=== PATIENT | female | born 1965 | race Two or more races ===

== ENCOUNTER 2024-04-03 23:42 | Inpatient (IN) | payer MEDICAID ==
[~2024-04-03] VITALS: Ht 157.5 cm; Wt 70.5 kg
[~2024-04-03 23:42] MED LIST: ACET-1304 PO; AMIO200T33 PO; APIX5TAB PO; ASPI-543 PO; ATOR40TA52 PO; CARV6.2551 PO; CEFD300C2 PO; CLOP75TA28 PO; DAPA1TAB4 PO; DOCU250C12 PO; DULA1INJ SC; GABA-339 PO; IBUP-1456 PO; LEVO50TA7 PO; MAGN400T40 PO; METF-929 PO; OMEG-54 PO; RANO500T3 PO; SENN1TAB14 PO
--- NOTE | 2024-04-03 23:59 | ED.PDOC ---
HPI Comments 58-year-old female who came to ER for chest pains. Patient has an extensive cardiac history, doing hypertension, diabetes, coronary artery disease, , CHF, AFib, status post cardiac stents. States for the past 3-4 days she has been having episodes of nausea and vomiting, unable to keep anything in. Earlier today, patient started experiencing substernal chest pains, midline, pressure, constant, nonradiating, associated with dizziness and shortness of breath. Upon arrival patient's blood pressure was 191/92 mm Hg Chief Complaint: Chest Pain Time Seen by MD: 23:59 Reviewed Notes: Nurses Notes Allergies: Coded Allergies: Codeine (Verified Allergy, 11/28/12) Home Meds Reported Medications Gabapentin (Gabapentin) 600 Mg Tab, 600 MG PO TID for 30 Days, MG 04/04/24 Acetaminophen (Acetaminophen) 325 Mg Tab, 500 MG PO for 30 Days, MG 0 Refills 04/04/24 Albuterol-Budesonide (Airsupra 90-80 Mcg/Act) 1 Aer Aer, 1 AER IN, AER 04/04/24 Aspirin (Aspir-Low) 81 Mg Tab, 81 MG PO DAILY for 30 Days, MG 04/04/24 Venlafaxine Hcl (Venlafaxine Hcl Er) 150 Mg Tab, 1 TAB PO, #30 TAB 1 Refill 04/04/24 Carvedilol (Carvedilol) 6.25 Mg Tab, 6.25 MG PO Q12HR for 30 Days, MG 04/04/24 Ranolazine (Ranolazine ER) 500 Mg Tab, 500 MG PO Q12HR, TAB 04/04/24 Cholecalciferol (VITAMIN D3) 2,000 Unit Chw, 2000 UNIT PO, TAB.CHEW 04/04/24 Multiple Vitamin (Multivitamin) 1 Tab Tab, 1 TAB PO, TAB 04/04/24 Metformin Hydrochloride (Metformin Hcl) 500 Mg Tab, 1000 MG PO BID for 30 Days, MG 04/04/24 Senna (Senna Laxative) 8.6 Mg Tab, 8.6 MG PO, TAB 04/04/24 Clopidogrel Bisulfate (CLOPIDOGREL) 75 Mg Tab, 75 MG PO DAILY for 30 Days, MG 04/04/24 Insulin Lispro (Admelog) 100 Unit/Ml Inj, 100 UNIT SC, INJ 04/04/24 Amiodarone Hcl (Amiodarone Hcl) 200 Mg Tab, 200 MG PO DAILY for 30 Days 04/04/24 Atorvastatin Calcium (ATORVASTATIN CALCIUM) 40 Mg Tab, 1 TAB PO DAILY, #30 TAB 5 Refills 04/04/24 Ondansetron HCl (Ondansetron) 4 Mg Tab, 4 MG PO, TAB 04/04/24 Dulaglutide (Trulicity) 1.5 Mg/0.5 Ml Inj, 1.5 MG SC QWEEKLY, INJ 04/04/24 Levothyroxine Sodium (Levothyroxine Sodium) 50 Mcg Tab, 50 MCG PO QAM for 30 Days, MCG 04/04/24 Dapagliflozin Propanediol (Farxiga) 10 Mg Tab, 5 MG PO DAILY, TAB 04/04/24 Psyllium (Metamucil) 0.36 Gm Cap, 3.4 GM PO, CAP 04/04/24 Polyethylene Glycol 3350 (Miralax) 17 Gm Pow, 17 GM PO, POW 04/04/24 Docusate Sodium (Colace) 100 Mg Cap, 1 CAP PO, #30 CAP 04/04/24 Meclizine Hcl (Meclizine Hcl) 12.5 Mg Tab, 12.5 MG PO TID for 30 Days, MG 04/04/24 Information Source: Patient Mode of Arrival: Ambulatory Severity: Moderate Timing: Days Duration: Intermittent Prehospital treatment: None Location: Substernal Radiation: No Radiation Quality: Pressure Onset: With Light Exertion Cardiac Risk Factors: HTN, Diabetes PE Risk Factors: None History of: Similar pain in past Modifying Factors: Nothing Associated Signs and Symptoms: SOB, N/V Past Medical History PAST MEDICAL HISTORY: AFIB, CAD, CHF, DM, HTN Surgical History: PTCA METAL FABRICATOR WELDER History: Denies all METAL FABRICATOR WELDER Hx Family History Family History: Reviewed,noncontributory to illness Social History Smoker: Non-Smoker Alcohol: Denies ETOH Use Drugs: Denies Drug Use Lives In: Home Constitutional: reports: weakness; denies: chills, diaphoresis, fatigue, fever, malaise, sweats, others EENTM: denies: blurred vision, double vision, ear bleeding, ear discharge, ear drainage, ear pain, ear ringing, eye pain, eye redness, hearing loss, mouth pain, mouth swelling, nasal discharge, nose bleeding, nose congestion, nose pain, photophobia, tearing, throat pain, throat swelling, voice changes, others Respiratory: reports: SOB at rest, shortness of breath; denies: cough, hemoptysis, orthopnea, SOB with excertion, stridor, wheezing, others Cardiovascular: reports: chest pain, dizzy spells, diaphoresis; denies: Dyspnea on exertion, edema, irregular heart beat, left arm pain, lightheadedness, palpitations, PND, syncope, others Gastrointestinal: reports: nausea, vomiting; denies: abdomen distended, abdominal pain, blood streaked bowels, constipated, diarrhea, dysphagia, difficulty swallowing, hematemesis, melena, poor appetite, poor fluid intake, rectal bleeding, rectal pain, others Genitourinary: denies: abnormal vagina bleeding, burning, dyspareunia, dysuria, flank pain, frequency, hematuria, incontinence, pain, , vagina discharge, urgency, others Neurological: denies: dizziness, fainting, headache, left sided numbness, left sided weakness, numbness, paresthesia, pre-existing deficit, right sided numbness, right sided weakness, seizure, speech problems, tingling, tremors, weakness, others Musculoskeletal: denies: back pain, gout, joint pain, joint swelling, muscle p ain, muscle stiffness, neck pain, others Integumetry: denies: bruises, change in color, change in hair/nails, dryness, laceration, lesions, lumps, rash, wounds, others Allergic/Immunocompromised: denies: Difficulty Healing, Frequent Infections, Hives, Itching, others Hematologic/Lymphatic: denies: anemia, blood clots, easy bleeding, easy bruising, swollen glands, others Endocrine: denies: excessive hunger, excessive sweating, excessive thirst, excessive urination, flushing, intolerance to cold, intolerance to heat, unexplained weight gain, unexplained weight loss, others Psychiatric: denies: anxiety, bipolar disorder, depression, hopeless, panic disorder, schizophrenia, sleepless, suicidal, others Physical Exam General Appearance: Moderate Distress, Normal HEENT: Normal ENT Inspection, Pharynx Normal, TMs Normal Neck: Full Range of Motion, Non-Tender, Normal, Normal Inspection Respiratory: Chest Non-Tender, Lungs Clear, No Accessory Muscle Use, No Respiratory Distress, Normal Breath Sounds Cardiovascular: Irregular, No Murmur Breast Exam: Deferred Gastrointestinal: No Organomegaly, Non Tender, No Pulsatile Mass, Normal Bowel Sounds, Soft Genitalia: Deferred Pelvic: Deferred Rectal: Deferred Extremities: No calf tenderness, Normal capillary refill, Normal inspection, Normal range of motion, Non-tender, No pedal edema Musculoskeletal : Apperance: Normal Neurologic: Alert, process coordinator II-XII nml as Tested, No Motor Deficits, Normal Affect, Normal Mood, No Sensory Deficits Cerebellar Function: Normal Reflexes: Normal Skin: Dry, Normal Color, Warm Lymphatic: No Adenopathy EKG EKG : Pulse Rate (adult): 80 Cardiac Rhythm: Afib Was a procedure done? Was a procedure done?: No CP Differential Dx Differential Diagnosis: A-fib, Angina, Anxiety / Panic Attack Differential Diagnosis: CHF Differential Diagnosis: Angina, Chest Wall Pain, Costochondritis, Esophageal reflux/spasm, Gastritis, Myocardial Infarction, Pneumonia X-Ray, Labs, Meds, VS Vital Signs Date Time Temp Pulse Resp B/P (MAP) Pulse Ox O2 Delivery O2 Flow Rate FiO2 04/04/24 02:00 80 16 148/90 (109) 95 04/04/24 01:30 78 19 175/88 (117) 96 04/04/24 01:15 75 13 164/84 (110) 94 04/04/24 00:28 74 04/04/24 00:13 98.5 84 14 177/76 (109) 97 98.5 04/04/24 00:05 84 14 97 Room Air* 0 21 04/03/24 23:51 97.9 80 18 191/92 (125) 98 04/03/24 23:48 80 Lab Test 04/04/24 00:40 04/03/24 23:50 Range/Units Troponin I High Sensitivity 160 *H 161 *H </=34 ng/L White Blood Count 7.7 4.4-10.8 10^3/uL Red Blood Count 4.93 4.0-5.20 10^6/uL Hemoglobin 15.4 12.2-16.2 g/dL Hematocrit 45.9 36.0-46.0 % Mean Corpuscular Volume 93.2 80.0-100.0 fL Mean Corpuscular Hemoglobin 31.2 28.0-32.0 pg Mean Corpuscular Hemoglobin Concent 33.5 32.0-36.0 g/dL Red Cell Distribution Width 15.3 H 11.8-14.3 % Platelet Count 300 140-450 10^3/uL Mean Platelet Volume 8.6 6.9-10.8 fL Neutrophils (%) (Auto) 68.1 37.0-80.0 % Lymphocytes (%) (Auto) 26.4 10.0-50.0 % Monocytes (%) (Auto) 4.0 0.0-12.0 % Eosinophils (%) (Auto) 0.9 0.0-7.0 % Basophils (%) (Auto) 0.6 0.0-2.0 % Neutrophils # (Auto) 5.3 1.6-8.6 10 ^3/uL Lymphocytes # (Auto) 2.0 0.4-5.4 10 ^3/uL Monocytes # (Auto) 0.3 0-1.3 10 ^3/uL Eosinophils # (Auto) 0.1 0-0.8 10 ^3/uL Basophils # (Auto) 0 0-0.2 10 ^3/uL Nucleated Red Blood Cells 0.0 % Prothrombin Time 10.9 9.3-11.8 sec Prothrombin Time INR 1.03 0.9-1.15 Activated Partial Thromboplast Time 25.1 24.5-34.5 SEC Sodium Level 145 136-145 mmol/L Potassium Level 4.3 3.5-5.1 mmol/L Chloride Level 105 98-107 mmol/L Carbon Dioxide Level 28 20-31 mmol/L Anion Gap 12 5-15 Blood Urea Nitrogen 10 9-23 mg/dL Creatinine 0.76 0.550-1.02 mg/dL Glomerular Filtration Rate Calc 91 >90 mL/min BUN/Creatinine Ratio 13.2 10.0-20.0 Serum Glucose 158 H 74-106 mg/dL Calcium Level 10.7 H 8.7-10.4 mg/dL Magnesium Level 2.1 1.6-2.6 mg/dL Total Bilirubin 0.3 0.2-1.0 mg/dL Aspartate Amino Transferase (AST) 24 13-40 U/L Alanine Aminotransferase (ALT) 27 7-40 U/L Alkaline Phosphatase 105 46-116 U/L Total Protein 8.4 H 5.7-8.2 g/dL Albumin 5.2 H 3.2-4.8 g/dL Lipase 77 H 12-53 U/L Current Medications Medications (Trade) Dose Ordered Sig/Renetta Route Start Time Stop Time Status Last Admin Aspirin (Ecotrin Enteric Coated Tablet) 81 mg ONCE ONCE PO 04/04/24 00:45 04/04/24 00:46 DC 04/04/24 00:46 Time of 1ST Reevaluation: 23:56 Reevaluation 1ST: Unchanged Time of 2ND Reevaluation: 00:33 Reevaluation 2ND: Unchanged Patient Education/Counseling: Diagnosis, Treatment Family Education/Counseling: No Family Present Departure 1 Departure Time of Disposition: 00:33 Impression: Primary Impression: Acute coronary syndrome Additional Impression: Atrial fibrillation Disposition: ADMITTED INPATIENT Admit to: Tele Condition: Guarded Critical Care Note Critical Care Time?: Yes (35 min-critical care time only) Critical care comment: Total critical care time: Approximately 36 minutes Due to a high probability of clinically significant, life threatening deterioration, the patient required my highest level of preparedness to intervene emergently and I personally spent this critical care time directly and personally managing the patient. This critical care time included obtaining a history; examining the patient; pulse oximetry; ordering and review of studies; arranging urgent treatment with development of a management plan; evaluation of patient's response to treatment; frequent reassessment; and, discussions with other providers. Stability Stability form required: No Heart Score Heart Score: Heart Score Response (Comments) Value History Moderate Suspicious 1 EKG Repolarization Disturb 1 Age 45-64 1 Risk Factors >3 or Hx ASHD 2 Troponin >3 x's Normal limit 2 Total 7 I personally scribed for BRENDAN CHUODHARY MD ([email or web address]) on 04/03/24 at 23:59. Electronically submitted by Riki Barreto ([email or web address]). I personally scribed for BRENDAN CHOUDHARY MD ([email or web address]) on 04/04/24 at 00:48. Electronically submitted by Riki Barreto ([email or web address]). BRENDAN CHOUDHARY MD Apr 03, 2024 23:59
[2024-04-04] VITALS (9 sets, daily range): BP systolic 115–186; BP diastolic 63–96; PULSE 74–87; RESP 14–19; TEMP 97.7–98.1; O2SAT 95–98
[2024-04-04 00:08] LABS: Basophils # (auto) 0 10 ^3/uL (0-0.2); Basophils % (auto) 0.6 % (0.0-2.0); Eosinophils # (auto) 0.1 10 ^3/uL (0-0.8); Eosinophils % (auto) 0.9 % (0.0-7.0); Hematocrit 45.9 % (36.0-46.0); Hemoglobin 15.4 g/dL (12.2-16.2); Lymphocytes % (auto) 26.4 % (10.0-50.0); Mean Corpuscular Hemoglobin 31.2 pg (28.0-32.0); Mean Corpuscular Hgb Conc. 33.5 g/dL (32.0-36.0); Mean Corpuscular Volume 93.2 fL (80.0-100.0); Monocytes # (auto) 0.3 10 ^3/uL (0-1.3); Neutrophils # (auto) 5.3 10 ^3/uL (1.6-8.6); Neutrophils % (auto) 68.1 % (37.0-80.0); Platelet Count (auto) 300 10^3/uL (140-450); Red Blood Cells 4.93 10^6/uL (4.0-5.20); Red Cell Distribution Width 15.3 % (11.8-14.3); White Blood Cell 7.7 10^3/uL (4.4-10.8)
[2024-04-04 00:22] LABS: Alanine Aminotransferase 27 U/L (7-40); Alkaline Phosphatase 105 U/L (46-116); Anion Gap 12 (5-15); Aspartate Aminotransferase 24 U/L (13-40); BUN/Creatinine Ratio 13.2 (10.0-20.0); Blood Urea Nitrogen 10 mg/dL (9-23); Carbon Dioxide 28 mmol/L (20-31); Chloride 105 mmol/L (98-107); Magnesium 2.1 mg/dL (1.6-2.6); Potassium 4.3 mmol/L (3.5-5.1); Sodium 145 mmol/L (136-145)
[2024-04-04 00:23] LABS: Albumin 5.2 g/dL (3.2-4.8); Bilirubin, Total 0.3 mg/dL (0.2-1.0); Calcium 10.7 mg/dL (8.7-10.4); Glucose 158 mg/dL (74-106); Total Protein 8.4 g/dL (5.7-8.2)
[2024-04-04 00:25] LABS: INR 1.03 (0.9-1.15); Partial Thromboplastin Time 25.1 SEC (24.5-34.5); Prothrombin Time 10.9 sec (9.3-11.8)
--- NOTE | 2024-04-04 00:26 | DVH ---
CHEST RADIOGRAPH Indication: chest pain Technique: Single frontal view of the chest was obtained Comparison: None FINDINGS: Lines and Tubes: None Lungs: Clear Pleura: No effusion. No pneumothorax. Cardiomediastinal contours: Unremarkable Bones: Unremarkable IMPRESSION: 1. Clear lungs.
[2024-04-04] MEDS: ASPirin-EC 81 mg tab PO ONE (00:46)
[2024-04-04] MEDS ORDERED: MORPHINE SULFATE INJ 2 MG/ml SYRG IV PRN (02:15)
[2024-04-04] MEDS ORDERED: DOCUSATE SOD 100 MG CAP PO PRN (02:15)
[2024-04-04] MEDS ORDERED: NITROGLYCERIN 0.4 MG SL TAB SL PRN (02:15)
[2024-04-04] MEDS ORDERED: DEXTROSE (50%) 50ML SYRG IV PRN (02:15)
--- NOTE | 2024-04-04 02:23 | DVHHP2 ---
History of Present Illness Reason for Visit: Acute coronary syndrome History of Present Illness The patient is a 58-year-old female with past medical history of AFib, Coronary artery disease, CHF, DM, and hypertension who presented to [facility] ED with complaint of chest pain. Patient reports symptoms progressively get worse with constant chest pain, nonradiating, dizzy spell, diaphoresis, weakness, shortness of breaths, SOB at rest, nausea, vomiting, getting worse today that prompted this visit. Patient was seen and evaluated in the ED, laboratory data shows WBC 7.7, platelets 300, sodium 145, potassium 4.3, BUN 10, creatinine 0.76, glucose 158, lipase 77, troponin 161, calcium 10.7, blood pressure 191/92 trending down to 148/90, heart rate 80, temperature 98.6 F, O2 saturation 95% on room air. Patient was given aspirin, please see medication orders section in the computer. On my assessment, patient denies chest pain at this moment, no headache, no dizziness, no diaphoresis, currently on oxygen, no nausea, no vomiting, no fever, no chills. Patient was admitted for further evaluation and medical management. Past Medical History AFIB, CAD, CHF, DM, HTN Past Surgical History PTCA Family History Reviewed, noncontributory to the management of this case. Past Social History The patient lives at home, denies smoking, alcohol or illicit drugs abuse. Review of Systems Constitutional: Yes: Weakness; No: Fever, Chills, Sweats, Malaise, Other Eyes: No: Pain, Vision change, Conjunctivae inflammation, Eyelid inflammation, Other, Redness ENT: No: Ear pain, Ear discharge, Nose pain, Nose discharge, Nose congestion, Mouth pain, Mouth swelling, Throat pain, Throat swelling, Other Respiratory: Shortness of breath, Other (SOB at rest); No: Cough, Dry, SOB with excertion, Wheezing, Hemoptysis, Pleuritic Pain, Sputum, Wheezing Cardiovascular: Chest Pain, Other (Dizzy spells, diaphoresis.); No: Palpitations, Orthopnea, Paroxysmal Noc. Dyspnea, Edema, Lt Headedness Gastrointestinal: Nausea, Vomiting; No: Abdominal Pain, Diarrhea, Constipation, Melena, Hematochezia, Other Genitourinary: No Dysuria, No Frequency, No Incontinence, No Hematuria, No Retention, No Other Musculoskeletal: No: other, neck pain, shoulder pain, arm pain, back pain, hand pain, leg pain, foot pain Skin: No: Rash, Lesions, Jaundice, Bruising, Other Neurological: No: Weakness, Numbness, Incoordination, Change in speech, Confusion, Seizures, Other Allergies: Coded Allergies: Codeine (Verified Allergy, 11/28/12) Exam Vital Signs Vital Signs Date Time Temp Pulse Resp B/P (MAP) Pulse Ox O2 Delivery O2 Flow Rate FiO2 04/04/24 02:00 80 16 148/90 (109) 95 04/04/24 00:13 98.5 98.5 General Appearance: Alert, Oriented X3, Cooperative, No acute distress HEENT: Atraumatic, PERRLA, EOMI, Mucous membr. moist/pink Respiratory: Clear to auscultation, Normal air movement Cardiovascular: Regular rate, Normal S1, Normal S2, No murmurs Abdominal: Normal bowel sounds, Soft, No tenderness, No hepatospenomegaly, No masses Extremities: No clubbing, No cyanosis, No edema, Normal pulses, No tenderness/swelling Skin: No rashes, No breakdown, No significant lesion Neuro: Normal gait, Normal speech, Strength at 5/5 X4 ext, Normal tone, Sensation intact, Cranial nerves 3-12 NL, Reflexes 2+ Psych/Mental Status: Mental status NL, Mood NL Labs/Xrays Labs Test 04/04/24 00:40 04/03/24 23:50 Range/Units Troponin I High Sensitivity 160 *H </=34 ng/L White Blood Count 7.7 4.4-10.8 10^3/uL Red Blood Count 4.93 4.0-5.20 10^6/uL Hemoglobin 15.4 12.2-16.2 g/dL Hematocrit 45.9 36.0-46.0 % Mean Corpuscular Volume 93.2 80.0-100.0 fL Mean Corpuscular Hemoglobin 31.2 28.0-32.0 pg Mean Corpuscular Hemoglobin Concent 33.5 32.0-36.0 g/dL Red Cell Distribution Width 15.3 H 11.8-14.3 % Platelet Count 300 140-450 10^3/uL Mean Platelet Volume 8.6 6.9-10.8 fL Neutrophils (%) (Auto) 68.1 37.0-80.0 % Lymphocytes (%) (Auto) 26.4 10.0-50.0 % Monocytes (%) (Auto) 4.0 0.0-12.0 % Eosinophils (%) (Auto) 0.9 0.0-7.0 % Basophils (%) (Auto) 0.6 0.0-2.0 % Neutrophils # (Auto) 5.3 1.6-8.6 10 ^3/uL Lymphocytes # (Auto) 2.0 0.4-5.4 10 ^3/uL Monocytes # (Auto) 0.3 0-1.3 10 ^3/uL Eosinophils # (Auto) 0.1 0-0.8 10 ^3/uL Basophils # (Auto) 0 0-0.2 10 ^3/uL Nucleated Red Blood Cells 0.0 % Prothrombin Time 10.9 9.3-11.8 sec Prothrombin Time INR 1.03 0.9-1.15 Activated Partial Thromboplast Time 25.1 24.5-34.5 SEC Sodium Level 145 136-145 mmol/L Potassium Level 4.3 3.5-5.1 mmol/L Chloride Level 105 98-107 mmol/L Carbon Dioxide Level 28 20-31 mmol/L Anion Gap 12 5-15 Blood Urea Nitrogen 10 9-23 mg/dL Creatinine 0.76 0.550-1.02 mg/dL Glomerular Filtration Rate Calc 91 >90 mL/min BUN/Creatinine Ratio 13.2 10.0-20.0 Serum Glucose 158 H 74-106 mg/dL Calcium Level 10.7 H 8.7-10.4 mg/dL Magnesium Level 2.1 1.6-2.6 mg/dL Total Bilirubin 0.3 0.2-1.0 mg/dL Aspartate Amino Transferase (AST) 24 13-40 U/L Alanine Aminotransferase (ALT) 27 7-40 U/L Alkaline Phosphatase 105 46-116 U/L Total Protein 8.4 H 5.7-8.2 g/dL Albumin 5.2 H 3.2-4.8 g/dL Lipase 77 H 12-53 U/L PATIENT: GRANT ALY ACCT: [id number] UNIT: [id number] : 1965 LOC: ER ROOM / BED: / AGE / SEX: 58 / F ADM STATUS: REG ER SERVICE [id number] ORDERING PHYSICIAN: BRENDAN CHOUDHARY MD PROCEDURE(s): CXRP - CHEST PORTABLE REASON: chest pain ORDER NUMBER(s): [id number], ACCESSION NUMBER(s): [id number] CHEST RADIOGRAPH Indication: chest pain Technique: Single frontal view of the chest was obtained Comparison: None FINDINGS: Lines and Tubes: None Lungs: Clear Pleura: No effusion. No pneumothorax. Cardiomediastinal contours: Unremarkable Bones: Unremarkable IMPRESSION: 1. Clear lungs. Assessment/Plan Assessment/Plan Acute coronary syndrome Atrial fibrillation Elevated lipase Hypertensive urgency Plan 1. Admit to telemetry unit 2. Breathing treatment 3. Pain control management 4. Management of fluids and electrolytes 5. Consultation for Cardiology 6. Diagnostic tests-chest x-ray 7. DVT prophylaxis-on aspirin 8. Repeat labs CBC, CMP in a.m. 9. Continue with current medical management 10. Treatment plan discussed with patient and RN. Patient verbalized understanding. Plan discussed with: Patient, Other (RN) My Orders Orders - ZAINA ESTEVEZ DNP Procedure Category Date Status Time Complete Blood Count LAB 04/04/24 Verified 04:00 Comprehensive LAB 04/04/24 Verified Metabolic Panel 04:00 Troponin-I Hs LAB 04/04/24 Verified 04:00 Aspirin Tablet PHA 04/04/24 Verified 10:00 Clopidogrel Bisulfate PHA 04/04/24 Verified (Plavix) 10:00 Consistent DIET 04/04/24 Verified Carb(Ccho)Diabetes Breakfast * Cardiology Consult CONS 04/04/24 Verified 02:13 Levothyroxine Tablet PHA 04/04/24 Verified (Synthroid Tablet) 06:00 Atorvastatin (Lipitor) PHA 04/04/24 Verified 22:00 Carvedilol Tablet PHA 04/04/24 Verified (Coreg Tablet) 10:00 Amlodipine Tablet PHA 04/04/24 Verified (Norvasc Tablet) 10:00 B-Type Natriuretic LAB 04/04/24 Verified Peptide 02:13 Glucose Blood PHA 04/04/24 Verified (Accu-Chek Comfort 07:00 Mild Sliding Scale PHA 04/04/24 Verified 07:00 Dextrose 50% Syringe PHA 04/04/24 Verified 02:15 Admit ADMIT 04/04/24 Verified 02:13 Allergies EVI 04/04/24 Verified 02:13 Code Status CODE 04/04/24 Verified 02:13 Sodium Chloride Lock [facility] 04/04/24 Verified (Saline Lock Ns) 06:00 Oxygen Per Hour RT 04/04/24 Verified 02:13 Ondansetron Hcl [facility] 04/04/24 Verified (Zofran) 02:15 Docusate Sodium [facility] 04/04/24 Verified Capsule (Colace 02:15 Complete Blood Count LAB 04/05/24 Verified 04:00 Comprehensive LAB 04/05/24 Verified Metabolic Panel 04:00 Condition: Serious [facility] 04/04/24 Verified 02:13 Acetaminophen Tablet [facility] 04/04/24 Verified (Tylenol Tablet) 02:15 Bedrest With Bathroom [facility] 04/04/24 Verified Privileg 02:13 Sequential [facility] 04/04/24 Verified Compression Device Nitroglycerin [facility] 04/04/24 Verified Sublingual (Ntrostat 02:15 Morphine Sulfate [facility] 04/04/24 Verified Injection 02:15 Notify Of Changes [facility] 04/04/24 Verified From Base 02:13 Soaker Meat For [facility] 04/04/24 Verified 24 Hours 02:13 Emergency Dysrhythmia [facility] 04/04/24 Verified Protocol 02:13 Rhythm Strips Once [facility] 04/04/24 Verified Every Shift 02:13 Problem List: (1) Acute coronary syndrome (2) Atrial fibrillation (3) Elevated lipase (4) Hypertensive urgency Date of Service: Apr 04, 2024 Billing Provider: ZAINA ESTEVEZ DNP Common Visit Codes: [id number] INP/OBS CARE (HIGH) ZAINA ESTEVEZ DNP Apr 04, 2024 02:23
[2024-04-04 04:08] LABS: Basophils # (auto) 0 10 ^3/uL (0-0.2); Basophils % (auto) 0.4 % (0.0-2.0); Eosinophils # (auto) 0 10 ^3/uL (0-0.8); Eosinophils % (auto) 0.4 % (0.0-7.0); Hematocrit 43.7 % (36.0-46.0); Hemoglobin 14.7 g/dL (12.2-16.2); Lymphocytes % (auto) 32.5 % (10.0-50.0); Mean Corpuscular Hemoglobin 31.5 pg (28.0-32.0); Mean Corpuscular Hgb Conc. 33.7 g/dL (32.0-36.0); Mean Corpuscular Volume 93.4 fL (80.0-100.0); Monocytes # (auto) 0.2 10 ^3/uL (0-1.3); Monocytes % (auto) 3.6 % (0.0-12.0); Neutrophils # (auto) 3.9 10 ^3/uL (1.6-8.6); Neutrophils % (auto) 63.1 % (37.0-80.0); Nucleated Red Blood Cells % 0.1 %; Platelet Count (auto) 281 10^3/uL (140-450); Red Blood Cells 4.68 10^6/uL (4.0-5.20); Red Cell Distribution Width 15.2 % (11.8-14.3); White Blood Cell 6.2 10^3/uL (4.4-10.8)
[2024-04-04 04:23] LABS: Alanine Aminotransferase 27 U/L (7-40); Albumin 4.7 g/dL (3.2-4.8); Alkaline Phosphatase 96 U/L (46-116); Anion Gap 11 (5-15); Aspartate Aminotransferase 20 U/L (13-40); BUN/Creatinine Ratio 14.1 (10.0-20.0); Blood Urea Nitrogen 10 mg/dL (9-23); Calcium 10.4 mg/dL (8.7-10.4); Carbon Dioxide 30 mmol/L (20-31); Chloride 104 mmol/L (98-107); Glucose 102 mg/dL (74-106); Potassium 3.5 mmol/L (3.5-5.1); Sodium 145 mmol/L (136-145)
[2024-04-04 04:24] LABS: Bilirubin, Total 0.4 mg/dL (0.2-1.0); Total Protein 7.8 g/dL (5.7-8.2)
[2024-04-04] MEDS ORDERED: RANO500T3 PO (04:58)
[2024-04-04] MEDS ORDERED: GABA-339 PO (04:58)
[2024-04-04] MEDS ORDERED: LEVO50TA7 PO (04:58)
[2024-04-04] MEDS ORDERED: DULA0.5I SC (04:58)
[2024-04-04] MEDS ORDERED: ATOR40TA52 PO (04:58)
[2024-04-04] MEDS ORDERED: ASPI-543 PO (04:58)
[2024-04-04] MEDS ORDERED: ACET-1881 PO (04:58)
[2024-04-04] MEDS ORDERED: DAPA1TAB4 PO (04:58)
[2024-04-04] MEDS ORDERED: ONDA-155 PO (04:58)
[2024-04-04] MEDS ORDERED: DOCU-94 PO (04:58)
[2024-04-04] MEDS ORDERED: POLY335015 PO (04:58)
[2024-04-04] MEDS ORDERED: METF-370 PO (04:58)
[2024-04-04] MEDS ORDERED: MECL12.586 PO (04:58)
[2024-04-04] MEDS ORDERED: SENN8.6T26 PO (04:58)
[2024-04-04] MEDS ORDERED: INSU100I26 SC (04:58)
[2024-04-04] MEDS ORDERED: VENL150T34 PO (04:58)
[2024-04-04] MEDS ORDERED: CLOP75TA70 PO (04:58)
[2024-04-04] MEDS ORDERED: CARV6.2551 PO (04:58)
[2024-04-04] MEDS ORDERED: CHOL200029 PO (04:58)
[2024-04-04] MEDS ORDERED: ALBU1AER6 IN (04:58)
[2024-04-04] MEDS ORDERED: MULT-1056 PO (04:58)
[2024-04-04] MEDS ORDERED: AMIO200T33 PO (04:58)
[2024-04-04] MEDS ORDERED: PSYL0.524 PO (04:58)
[2024-04-04] MEDS: hydrALAZINE HCL 20 MG/ML VL IV PRN (05:20)
[2024-04-04] MEDS: SODIUM CHLOR 0.9% PF (SALINE LOCK) 10ML VIAL/SYR IV SCH (05:21)
[2024-04-04] MEDS: ACETAMINOPHEN 325 MG TAB PO PRN (05:21)
[2024-04-04] MEDS: LEVOTHYROXINE SODIUM 50 MCG TAB PO SCH (06:00)
[2024-04-04] MEDS: ACCU-CHEK COMFORT CURVE STRIP VI SCH (06:45)
[2024-04-04] MEDS: InsuLIN REG 1unit/0.01ml Soln (100units/ml) SC SCH (06:45)
[2024-04-04] MEDS: CARVEDILOL 12.5 MG TAB PO SCH (08:36)
[2024-04-04] MEDS: ASPirin 81 mg TAB PO SCH (08:37)
[2024-04-04] MEDS: CLOPIDOGREL BISULFATE 75 MG TAB PO SCH (08:38)
[2024-04-04] MEDS: amLODIPine BESYLATE 5 MG TAB PO SCH (08:38)
[2024-04-04 09:46] LABS: Urine Bacteria None Seen /hpf (None Seen)
[2024-04-04 09:56] LABS: Urine Blood Negative /uL (Negative); Urine Clarity Clear (Clear); Urine Color Yellow (Yellow); Urine Protein, UAD 2+ (Negative); Urine Specific Gravity 1.039 (1.001-1.035); Urine Urobilinogen Normal (Negative); Urine WBC 2 /hpf (0 - 5); Urine pH 7.5 (5.0-9.0)
--- NOTE | 2024-04-04 11:10 | DVHINCON2 ---
KAYLEE PARIS [facility] 04/04/24 1110: Date Seen: Apr 04, 2024 Referring Physician KAITY Banks Reason for Consultation Chest pain with elevated troponin History of Present Illness This is a 58-year-old female patient who presents to the emergency room with chief complaint of chest pain that began at 8:00 a.m. yesterday morning. The patient reports that she was folding clothes and putting clothes away at home w hen suddenly she began experiencing the chest pain. She describes the pain as unprovoked, pressure-like in nature, and generalized over her entire right, center and left side of chest without radiation to arms/back/face. She comes to the emergency room for further evaluation. Initial twelve lead electrocardiogram reveals normal sinus rhythm without any significant ST segment changes. Initial troponin level of 161ng/L with flat trend thereafter. Significant past medical history includes coronary artery disease status post multiple PCIs with stents (on Plavix and ASA), congestive heart failure, atrial fibrillation (not on NOAC), myocardial infarction, hypertension, hyperlipidemia, type 2 diabetes mellitus, hypothyroidism, and obesity. Of note, the patient came in with blood pressure reaching as high as 191/92. The patient reports that she has been checking her blood pressure at home and has been having systolic readings in the 180s for approximately one week at home. She does report some stress at home as she is unhappy with her caregiving situation. The patient was also recently seen at this facility where she underwent a coronary angiogram with left heart catheterization on 02/10/2024 (under different ) which revealed widely patent stents to the RCA, LAD, and left circumflex. The patient also reports going to [facility] on 03/18/2024 and undergoing another angiogram at that time for which she states she can not remember if there were any stent placement. Patient's primary meter inspector is . Past Medical History Past medical history reviewed. No other significant than mentioned above. Past Surgical History Hysterectomy Cataract removal Family History: Cerebrovascular accident (CVA) G8 FATHER Cervical cancer G8 MOTHER Family History Family history reviewed. Social History Patient has a eight pack-year history, quit smoking approximately five years ago Patient denies any alcohol use Patient denies any drug use Allergies: Coded Allergies: Codeine (Verified Allergy, 11/28/12) Home Meds Reported Medications Venlafaxine Hcl (Venlafaxine Hcl Er) 150 Mg Cap, 1 CAP PO DAILY 04/04/24 Gabapentin (Gabapentin) 600 Mg Tab, 600 MG PO TID for 30 Days, MG 04/04/24 Acetaminophen (Acetaminophen) 325 Mg Tab, 500 MG PO for 30 Days, MG 0 Refills 04/04/24 Albuterol-Budesonide (Airsupra 90-80 Mcg/Act) 1 Aer Aer, 1 AER IN, AER 04/04/24 Aspirin (Aspir-Low) 81 Mg Tab, 81 MG PO DAILY for 30 Days, MG 04/04/24 Venlafaxine Hcl (Venlafaxine Hcl Er) 150 Mg Tab, 1 TAB PO, #30 TAB 1 Refill 04/04/24 Carvedilol (Carvedilol) 6.25 Mg Tab, 6.25 MG PO Q12HR for 30 Days, MG 04/04/24 Ranolazine (Ranolazine ER) 500 Mg Tab, 500 MG PO Q12HR, TAB 04/04/24 Cholecalciferol (VITAMIN D3) 2,000 Unit Chw, 2000 UNIT PO, TAB.CHEW 04/04/24 Multiple Vitamin (Multivitamin) 1 Tab Tab, 1 TAB PO, TAB 04/04/24 Metformin Hydrochloride (Metformin Hcl) 500 Mg Tab, 1000 MG PO BID for 30 Days, MG 04/04/24 Senna (Senna Laxative) 8.6 Mg Tab, 8.6 MG PO, TAB 04/04/24 Clopidogrel Bisulfate (CLOPIDOGREL) 75 Mg Tab, 75 MG PO DAILY for 30 Days, MG 04/04/24 Insulin Lispro (Admelog) 100 Unit/Ml Inj, 100 UNIT SC, INJ 04/04/24 Amiodarone Hcl (Amiodarone Hcl) 200 Mg Tab, 200 MG PO DAILY for 30 Days 04/04/24 Atorvastatin Calcium (ATORVASTATIN CALCIUM) 40 Mg Tab, 1 TAB PO DAILY, #30 TAB 5 Refills 04/04/24 Ondansetron HCl (Ondansetron) 4 Mg Tab, 4 MG PO, TAB 04/04/24 Dulaglutide (Trulicity) 1.5 Mg/0.5 Ml Inj, 1.5 MG SC QWEEKLY, INJ 04/04/24 Levothyroxine Sodium (Levothyroxine Sodium) 50 Mcg Tab, 50 MCG PO QAM for 30 Days, MCG 04/04/24 Dapagliflozin Propanediol (Farxiga) 10 Mg Tab, 5 MG PO DAILY, TAB 04/04/24 Psyllium (Metamucil) 0.36 Gm Cap, 3.4 GM PO, CAP 04/04/24 Polyethylene Glycol 3350 (Miralax) 17 Gm Pow, 17 GM PO, POW 04/04/24 Docusate Sodium (Colace) 100 Mg Cap, 1 CAP PO, #30 CAP 04/04/24 Meclizine Hcl (Meclizine Hcl) 12.5 Mg Tab, 12.5 MG PO TID for 30 Days, MG 04/04/24 Home Meds Home medications reviewed. Current Medications Current Medications Medications (Trade) Dose Ordered Sig/Renetta Route PRN Reason Start Time Stop Time Status Last Admin Aspirin 81 mg DAILY PO 04/04/24 10:00 04/04/24 08:37 Clopidogrel Bisulfate (Plavix) 75 mg DAILY PO 04/04/24 10:00 04/04/24 08:38 Levothyroxine Sodium (Synthroid Tablet) 50 mcg QAM@0600 PO 04/04/24 06:00 04/04/24 06:00 Atorvastatin Calcium (Lipitor) 20 mg HS PO 04/04/24 22:00 Carvedilol (Coreg Tablet) 12.5 mg Q12HR PO 04/04/24 10:00 04/04/24 08:36 Amlodipine Besylate (Norvasc Tablet) 5 mg DAILY PO 04/04/24 10:00 04/04/24 08:38 Diagnostic Test (Pha) (Accu-Chek Comfort Curve T) 1 strip ACHS 04/04/24 07:00 Insulin Human Regular (InsuLIN R) ACHS SC 04/04/24 07:00 Dextrose 50 ml UD PRN IV Blood Sugar LESS THAN 60 04/04/24 02:15 Sodium Chloride (Saline Lock Ns) 10 ml Q8HR IV 04/04/24 06:00 04/04/24 05:21 Ondansetron HCl (Zofran) 4 mg Q4HP PRN IV NAUSEA / VOMITING 04/04/24 02:15 Docusate Sodium (Colace Capsule) 100 mg BIDPRN PRN PO FOR CONSTIPATION 04/04/24 02:15 Acetaminophen (Tylenol Tablet) 650 mg Q6HP PRN PO PAIN SCALE 1-3 OR TEMP>100.4 04/04/24 02:15 04/04/24 05:21 Nitroglycerin (Ntrostat Sublingual) 0.4 mg Q5MINP PRN SL FOR CHEST PAIN 04/04/24 02:15 Morphine Sulfate 2 mg Q30M PRN IV FOR CHEST PAIN 04/04/24 02:15 Hydromorphone HCl (Dilaudid Injection) 0.5 mg Q4HPRN PRN IV SEVERE PAIN (7-10 PAIN SCALE) 04/04/24 02:15 Hydralazine HCl (Apresoline Injection) 10 mg Q6HP PRN IV SBP>150 04/04/24 05:15 04/04/24 05:20 Review of Systems Constitutional: No symptom reported Ears, Nose, & Throat: No symptom reported Eyes: No symptom reported Neurological: No symptoms reported Pulmonary/Respiratory: No symptoms reported Cardiovascular: Chest pain Gastrointestinal: No symptom reported Genitourinary: No symptom reported Musculoskeletal: No symptom reported Skin: No symptom reported Psychiatric: No symptom reported Endocrine: No symptom reported Hematologic/Lymphatic: No symptom reported Vital Signs Vital Signs Date Time Temp Pulse Resp B/P (MAP) Pulse Ox O2 Delivery O2 Flow Rate FiO2 04/04/24 09:00 98.1 87 18 118/70 (86) 96 98.1 04/04/24 08:00 Room Air* 0 21 Physical Exam General Appearance: Cooperative. Well-developed. Well-nourished. No acute distress. Pulmonary/Respiratory: Clear, bilateral breaths sounds. Cardiovascular/Chest: Regular rate and rhythm. Peripheral Pulses: 2+ Radial (R). 2+ Radial (L). 2+ Pedal (R). 2+ Pedal (L) Abdominal Exam: Normal bowel sounds. Ankle Exam: Negative ankle edema Lower extremities: Negative lower extremity edema Neuro/Mental Status: A/OX4, coherent. Thoughts/Psych: Normal thought pattern. Appropriate mood and affect. Good judgme nt and insight. Appearance: No acute distress. Skin Exam: Normal inspection. Normal color. Warm and dry. Labs/Diagnostic Data Labs Test 04/04/24 08:00 04/04/24 03:37 04/03/24 23:50 Range/Units Urine Color Yellow Yellow Urine Clarity Clear Clear Urine pH 7.5 5.0-9.0 Urine Specific [place] 1.039 H 1.001-1.035 Urine Protein 2+ H Negative Urine Ketones 2+ H Negative Urine Blood Negative Negative /uL Urine Nitrite Negative Negative Urine Bilirubin Negative Negative Urine Urobilinogen Normal Negative mg/dL Urine Leukocyte Esterase Negative Negative /uL Urine RBC 2 0 - 4 /hpf Urine WBC 2 0 - 5 /hpf Urine Squamous Epithelial Cells Few <5 /hpf Urine Bacteria None seen None Seen /hpf Urine Glucose 4+ H Normal mg/dL White Blood Count 6.2 4.4-10.8 10^3/uL Red Blood Count 4.68 4.0-5.20 10^6/uL Hemoglobin 14.7 12.2-16.2 g/dL Hematocrit 43.7 36.0-46.0 % Mean Corpuscular Volume 93.4 80.0-100.0 fL Mean Corpuscular Hemoglobin 31.5 28.0-32.0 pg Mean Corpuscular Hemoglobin Concent 33.7 32.0-36.0 g/dL Red Cell Distribution Width 15.2 H 11.8-14.3 % Platelet Count 281 140-450 10^3/uL Mean Platelet Volume 8.7 6.9-10.8 fL Neutrophils (%) (Auto) 63.1 37.0-80.0 % Lymphocytes (%) (Auto) 32.5 10.0-50.0 % Monocytes (%) (Auto) 3.6 0.0-12.0 % Eosinophils (%) (Auto) 0.4 0.0-7.0 % Basophils (%) (Auto) 0.4 0.0-2.0 % Neutrophils # (Auto) 3.9 1.6-8.6 10 ^3/uL Lymphocytes # (Auto) 2.0 0.4-5.4 10 ^3/uL Monocytes # (Auto) 0.2 0-1.3 10 ^3/uL Eosinophils # (Auto) 0 0-0.8 10 ^3/uL Basophils # (Auto) 0 0-0.2 10 ^3/uL Nucleated Red Blood Cells 0.1 % Sodium Level 145 136-145 mmol/L Potassium Level 3.5 3.5-5.1 mmol/L Chloride Level 104 98-107 mmol/L Carbon Dioxide Level 30 20-31 mmol/L Anion Gap 11 5-15 Blood Urea Nitrogen 10 9-23 mg/dL Creatinine 0.71 0.550-1.02 mg/dL Glomerular Filtration Rate Calc 98 >90 mL/min BUN/Creatinine Ratio 14.1 10.0-20.0 Serum Glucose 102 74-106 mg/dL Calcium Level 10.4 8.7-10.4 mg/dL Total Bilirubin 0.4 0.2-1.0 mg/dL Aspartate Amino Transferase (AST) 20 13-40 U/L Alanine Aminotransferase (ALT) 27 7-40 U/L Alkaline Phosphatase 96 46-116 U/L Troponin I High Sensitivity 151 *H </=34 ng/L B-Type Natriuretic Peptide 13.81 0-100 pg/mL Total Protein 7.8 5.7-8.2 g/dL Albumin 4.7 3.2-4.8 g/dL Prothrombin Time 10.9 9.3-11.8 sec Prothrombin Time INR 1.03 0.9-1.15 Activated Partial Thromboplast Time 25.1 24.5-34.5 SEC Magnesium Level 2.1 1.6-2.6 mg/dL Lipase 77 H 12-53 U/L Assessment NSTEMI type II in the setting of hypertensive urgency Coronary artery disease s/p multiple PCIs and stents (on Plavix and ASA) Acute on chronic HFrEF, NYHA class III Paroxysmal atrial fibrillation (off NOAC) Hyperlipidemia Type 2 diabetes mellitus Thyroid disease Obesity Plan/Recommendation We will continue with following plan/recommendations (): * Echocardiogram from 02/10/24 reveals EF 35-40% (found under different ) * Initiate GDMT for CHF as tolerated * Strict intake and output, daily weights, maintain fluid restriction * Aggressive BP control * Lipid-lowering agent * Continue dual antiplatelet therapy * Restart Ranexa Case discussed with Dr. Vidales. We will recommend aggressive blood pressure control and medical management at this time. Thank you for allowing us to care for this patient. Please call with any questions or concerns. Critical care time spent: 41 minutes This medical document was created using an electronic medical record system with voice recognition software and computerized dictation system. Although this document has been carefully reviewed, there might still be some phonetic and typographical errors. Occasional wrong-word or ``sound-alike substitutions may have occurred due to the inherent limitations of voice recognition software. These areas are purely typographical due to imperfections of the software programs and do not reflect any compromise in the patient's medical care. Please read the chart carefully and recognize, using context, where these substitutions have occurred. Plan discussed with: Patient NYHA Physical activity limitations: Class3(Marked) ordinary (activity causes symtoms) Date of Service: Apr 04, 2024 Billing Provider: KAYLEE PARIS Cardiology Common Codes: [id number] INP/OBS CARE (High) Cardiology Consultation Codes: [id number] CONSULT <45MIN NARENDRA VIDALES MD 04/05/24 1018: Family History: Cerebrovascular accident (CVA) G8 FATHER Cervical cancer G8 MOTHER Allergies: Coded Allergies: Codeine (Verified Allergy, 11/28/12) Home Meds Reported Medications Venlafaxine Hcl (Venlafaxine Hcl Er) 150 Mg Cap, 1 CAP PO DAILY 04/04/24 Gabapentin (Gabapentin) 600 Mg Tab, 600 MG PO TID for 30 Days, MG 04/04/24 Acetaminophen (Acetaminophen) 325 Mg Tab, 500 MG PO for 30 Days, MG 0 Refills 04/04/24 Albuterol-Budesonide (Airsupra 90-80 Mcg/Act) 1 Aer Aer, 1 AER IN, AER 04/04/24 Aspirin (Aspir-Low) 81 Mg Tab, 81 MG PO DAILY for 30 Days, MG 04/04/24 Venlafaxine Hcl (Venlafaxine Hcl Er) 150 Mg Tab, 1 TAB PO, #30 TAB 1 Refill 04/04/24 Carvedilol (Carvedilol) 6.25 Mg Tab, 6.25 MG PO Q12HR for 30 Days, MG 04/04/24 Ranolazine (Ranolazine ER) 500 Mg Tab, 500 MG PO Q12HR, TAB 04/04/24 Cholecalciferol (VITAMIN D3) 2,000 Unit Chw, 2000 UNIT PO, TAB.CHEW 04/04/24 Multiple Vitamin (Multivitamin) 1 Tab Tab, 1 TAB PO, TAB 04/04/24 Metformin Hydrochloride (Metformin Hcl) 500 Mg Tab, 1000 MG PO BID for 30 Days, MG 04/04/24 Senna (Senna Laxative) 8.6 Mg Tab, 8.6 MG PO, TAB 04/04/24 Clopidogrel Bisulfate (CLOPIDOGREL) 75 Mg Tab, 75 MG PO DAILY for 30 Days, MG 04/04/24 Insulin Lispro (Admelog) 100 Unit/Ml Inj, 100 UNIT SC, INJ 04/04/24 Amiodarone Hcl (Amiodarone Hcl) 200 Mg Tab, 200 MG PO DAILY for 30 Days 04/04/24 Atorvastatin Calcium (ATORVASTATIN CALCIUM) 40 Mg Tab, 1 TAB PO DAILY, #30 TAB 5 Refills 04/04/24 Ondansetron HCl (Ondansetron) 4 Mg Tab, 4 MG PO, TAB 04/04/24 Dulaglutide (Trulicity) 1.5 Mg/0.5 Ml Inj, 1.5 MG SC QWEEKLY, INJ 04/04/24 Levothyroxine Sodium (Levothyroxine Sodium) 50 Mcg Tab, 50 MCG PO QAM for 30 Days, MCG 04/04/24 Dapagliflozin Propanediol (Farxiga) 10 Mg Tab, 5 MG PO DAILY, TAB 04/04/24 Psyllium (Metamucil) 0.36 Gm Cap, 3.4 GM PO, CAP 04/04/24 Polyethylene Glycol 3350 (Miralax) 17 Gm Pow, 17 GM PO, POW 04/04/24 Docusate Sodium (Colace) 100 Mg Cap, 1 CAP PO, #30 CAP 04/04/24 Meclizine Hcl (Meclizine Hcl) 12.5 Mg Tab, 12.5 MG PO TID for 30 Days, MG 04/04/24 Plan/Recommendation dw [employer] [facility] images indepenedently reviewed by myself we looked up the [facility] records as well to review cath report and lab results medical management is indicated bp control Plan discussed with: Patient KAYLEE PARIS [employer] Apr 04, 2024 11:10 NARENDRA VIDALES MD Apr 05, 2024 10:18
[2024-04-04] MEDS ORDERED: VENL150C58 PO (12:42)
--- NOTE | 2024-04-04 12:47 | DVHPN2 ---
Subjective Patient states that she was currently chest pain free, but states that she had cramping type of chest pain this morning. Reviewed: Care Plan, H&P, Labs Changes from previous H/P or p: No Changes General: Per HPI Eyes: No Pain, No Vision change, No Conjunctivae inflammation, No Eyelid inflammation, No Other, No Redness ENT: No Ear pain, No Ear discharge, No Nose pain, No Nose discharge, No Nose congestion, No Mouth pain, No Mouth swelling, No Throat pain, No Throat swelling, No Other Cardiovascular: Chest Pain; No Palpitations, No Orthopnea, No Paroxysmal Noc. Dyspnea, No Edema, No Lt Headedness; Other (Dizzy spells, diaphoresis.) Respiratory: No Cough, No Dry; Shortness of breath; No SOB with excertion, No Wheezing, No Hemoptysis, No Pleuritic Pain, No Sputum; Other (SOB at rest) Gastrointestinal: Nausea, Vomiting; No Abdominal Pain, No Diarrhea, No Constipation, No Melena, No Hematochezia, No Other Genitourinary: No Dysuria, No Frequency, No Incontinence, No Hematuria, No Retention, No Other Musculoskeletal: No other, No neck pain, No shoulder pain, No arm pain, No back pain, No hand pain, No leg pain, No foot pain Skin: No Rash, No Lesions, No Jaundice, No Bruising, No Other Objective Vitals Vital Signs Date Time Temp Pulse Resp B/P (MAP) Pulse Ox O2 Delivery O2 Flow Rate FiO2 04/04/24 09:00 98.1 87 18 118/70 (86) 96 98.1 04/04/24 08:00 Room Air* 0 21 Intake/Output Intake and Output 04/04/24 07:00 Intake Total 0 ml Balance 0 ml Intake Oral 0 ml General Appearance: Alert, Oriented X3, Cooperative, No acute distress, mild distress HEENT: Atraumatic, PERRLA Cardiovascular: Normal S1, Normal S2 Musculoskeletal: Normal sensory function, Normal motor function Lymph: Lymphadenopathy, Lymphedema Psych/Mental Status: Mental status NL, Mood NL Medications Current Medications Medications Dose Ordered Sig/Renetta Route Start Time Stop Time Status Last Admin Dose Admin Aspirin 81 mg DAILY PO 04/04/24 10:00 04/04/24 08:37 81 MG Clopidogrel Bisulfate 75 mg DAILY PO 04/04/24 10:00 04/04/24 08:38 75 MG Levothyroxine Sodium 50 mcg QAM@0600 PO 04/04/24 06:00 04/04/24 06:00 50 MCG Carvedilol 12.5 mg Q12HR PO 04/04/24 10:00 04/04/24 08:36 12.5 MG Diagnostic Test (Pha) 1 strip ACHS 04/04/24 07:00 04/04/24 11:32 1 STRIP Insulin Human Regular ACHS SC 04/04/24 07:00 Dextrose 50 ml UD PRN IV 04/04/24 02:15 Sodium Chloride 10 ml Q8HR IV 04/04/24 06:00 04/04/24 11:32 10 ML Ondansetron HCl 4 mg Q4HP PRN IV 04/04/24 02:15 Docusate Sodium 100 mg BIDPRN PRN PO 04/04/24 02:15 Acetaminophen 650 mg Q6HP PRN PO 04/04/24 02:15 04/04/24 05:21 650 MG Nitroglycerin 0.4 mg Q5MINP PRN SL 04/04/24 02:15 Morphine Sulfate 2 mg Q30M PRN IV 04/04/24 02:15 Hydromorphone HCl 0.5 mg Q4HPRN PRN IV 04/04/24 02:15 Hydralazine HCl 10 mg Q6HP PRN IV 04/04/24 05:15 04/04/24 05:20 10 MG Empaglifozin 10 mg DAILY PO 04/05/24 10:00 Sacubitril/ Valsartan 1 tab BID PO 04/04/24 22:00 Spironolactone 25 mg DAILY PO 04/05/24 10:00 Atorvastatin Calcium 40 mg HS PO 04/04/24 22:00 Laboratory Results Laboratory Tests 04/04/24 03:37 Chemistry Test 04/03/24 23:50 04/04/24 03:37 Albumin 5.2 g/dL (3.2-4.8) H 4.7 g/dL (3.2-4.8) Calcium Level 10.7 mg/dL (8.7-10.4) H 10.4 mg/dL (8.7-10.4) Magnesium Level 2.1 mg/dL (1.6-2.6) Total Protein 8.4 g/dL (5.7-8.2) H 7.8 g/dL (5.7-8.2) Coagulation Test 04/03/24 23:50 Prothrombin Time 10.9 sec (9.3-11.8) Prothrombin Time INR 1.03 (0.9-1.15) Activated Partial Thromboplast Time 25.1 SEC (24.5-34.5) Lipid panel Test 04/03/24 23:50 Lipase 77 U/L (12-53) H Cardiac Markers Test 04/04/24 03:37 B-Type Natriuretic Peptide 13.81 pg/mL (0-100) LFT Test 04/03/24 23:50 04/04/24 03:37 Alanine Aminotransferase (ALT) 27 U/L (7-40) 27 U/L (7-40) Alkaline Phosphatase 105 U/L (46-116) 96 U/L (46-116) Aspartate Amino Transferase (AST) 24 U/L (13-40) 20 U/L (13-40) Total Bilirubin 0.3 mg/dL (0.2-1.0) 0.4 mg/dL (0.2-1.0) Urinalysis Test 04/04/24 08:00 Urine Color Yellow (Yellow) Urine Clarity Clear (Clear) Urine pH 7.5 (5.0-9.0) Urine Specific [place] 1.039 (1.001-1.035) Urine Protein 2+ (Negative) H Urine Ketones 2+ (Negative) H Urine Blood Negative /uL (Negative) Urine Nitrite Negative (Negative) Urine Bilirubin Negative (Negative) Urine Urobilinogen Normal mg/dL (Negative) Urine Leukocyte Esterase Negative /uL (Negative) Urine RBC 2 /hpf (0 - 4) Urine WBC 2 /hpf (0 - 5) Urine Squamous Epithelial Cells Few /hpf (<5) Urine Bacteria None seen /hpf (None Seen) Urine Glucose 4+ mg/dL (Normal) H Labs and/or images reviewed: Labs reviewed by me, Image(s) reviewed by me Assessment/Plan Assessment/Plan Impression: -NSTEMI, questionably type 1 -? Prinzmetal angina secondary to small-vessel disease -diabetes mellitus -anxiety disorder -depression -dyslipidemia -history of coronary artery disease with previous stent placement -acute on chronic systolic heart failure Plan: -cardiology consultation: Recommendations reviewed. -continue goal-directed medical therapy -continue dual antiplatelet therapy -continue statin -regular insulin sliding scale -given patient was repeated admissions for chest pain,? Start nitrates and maximize beta-xochilt therapy,? Start Ranexa -discharge planning once cleared by Cardiology -check inflammatory markers for possible myocarditis, pericarditis etiology Total time spent with patient discussing and formulating plan of care: 35 minutes. This medical document was created using an electronic medical record system with [employer] dictation system. Although this document has been carefully reviewed, there may still be some phonetic and typographical errors. These areas are purely typographical due to imperfections of the software programs, and do not reflect any compromise in the patient's medical care. Plan discussed with: Patient, Other (RN) My Orders Orders - MELANI CRISTINA NP Procedure Category Date Status Time Erythrocyte LAB 04/04/24 In Process Sedimentation Rate 11:59 Date of Service: Apr 04, 2024 Billing Provider: MELANI CRISTINA NP Common Visit Codes: [id number] INP/OBS CARE(HIGH) MELANI CRISTINA NP Apr 04, 2024 12:47
[2024-04-04 13:05] LABS: Erythrocyte Sedimentation Rate 23 mm/hr (0-20)
[2024-04-04] MEDS: ONDANSETRON HCL 4 MG/2 ML VIAL IV PRN (16:39)
[2024-04-04] MEDS: ATORVASTATIN 20 MG TAB PO SCH (21:53)
[2024-04-04] MEDS: RANOLAZINE ER 500 MG TAB PO SCH (21:54)
[2024-04-04] MEDS: SACUBITRIL-VALSARTAN 24mg/26mg TAB PO SCH (21:55)
[2024-04-04] MEDS: HYDROmorphone HCL 2 MG/ML VL/or syr IV PRN (21:56)
[2024-04-04] MEDS ORDERED: ATORVASTATIN 20 MG TAB PO SCH (22:00)
[2024-04-05] VITALS (9 sets, daily range): BP systolic 85–105; BP diastolic 51–69; PULSE 70–78; RESP 16–20; TEMP 97.8–98.6; O2SAT 92–97
[2024-04-05 07:50] LABS: Basophils # (auto) 0 10 ^3/uL (0-0.2); Basophils % (auto) 0.5 % (0.0-2.0); Eosinophils # (auto) 0.2 10 ^3/uL (0-0.8); Eosinophils % (auto) 3.6 % (0.0-7.0); Hematocrit 41.4 % (36.0-46.0); Hemoglobin 13.9 g/dL (12.2-16.2); Lymphocytes % (auto) 42.8 % (10.0-50.0); Mean Corpuscular Hemoglobin 31.5 pg (28.0-32.0); Mean Corpuscular Hgb Conc. 33.4 g/dL (32.0-36.0); Mean Corpuscular Volume 94.1 fL (80.0-100.0); Monocytes # (auto) 0.3 10 ^3/uL (0-1.3); Monocytes % (auto) 5.5 % (0.0-12.0); Neutrophils # (auto) 2.3 10 ^3/uL (1.6-8.6); Neutrophils % (auto) 47.6 % (37.0-80.0); Nucleated Red Blood Cells % 0.1 %; Platelet Count (auto) 260 10^3/uL (140-450); Red Blood Cells 4.41 10^6/uL (4.0-5.20); Red Cell Distribution Width 14.9 % (11.8-14.3); White Blood Cell 4.7 10^3/uL (4.4-10.8)
[2024-04-05 08:06] LABS: Alanine Aminotransferase 23 U/L (7-40); Alkaline Phosphatase 83 U/L (46-116); Anion Gap 8 (5-15); BUN/Creatinine Ratio 14.3 (10.0-20.0); Blood Urea Nitrogen 13 mg/dL (9-23); Calcium 9.9 mg/dL (8.7-10.4); Carbon Dioxide 28 mmol/L (20-31); Chloride 104 mmol/L (98-107); Potassium 3.7 mmol/L (3.5-5.1); Sodium 140 mmol/L (136-145)
[2024-04-05 08:07] LABS: Albumin 4.1 g/dL (3.2-4.8); Aspartate Aminotransferase 21 U/L (13-40); Bilirubin, Total 0.4 mg/dL (0.2-1.0)
[2024-04-05 08:14] LABS: Glucose 130 mg/dL (74-106)
[2024-04-05] MEDS ORDERED: SPIRONOLACTONE 25 MG TAB PO SCH (10:00)
[2024-04-05] MEDS: EMPAGLIFLOZIN 10 MG TAB PO SCH (10:09)
--- NOTE | 2024-04-05 10:51 | ECG ---
[facility] Test Date: 2024-04-03 Test Time: 23:48:12 Pat Name: GRANT ALY [facility] F [employer] Service Writer: CRISTHIAN : 1965 Requested By: BRENDAN CHOUDHARY Order Number: [id number] Reading MD: Joaquin Alanis Measurements Intervals [place] Rate: 80 P: 0 [place]: 0 QRS: 0 QRSD: 92 T: 73 QT: 409 QTc: 472 Interpretive Statements Atrial fibrillation Baseline wander in lead(s) V6 Electronically Signed On 04-09-2024 16:06:47 PST by Joaquin Alanis Please click the below link to view image of tracing.
[2024-04-05] MEDS: SODIUM CHLORIDE 0.9% 500 ML IV ONE (13:36)
--- NOTE | 2024-04-05 16:49 | DVHPN2 ---
Subjective Feels better. 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) Changes from previous H/P or p: No Changes General: Per HPI Objective Vitals Vital Signs Date Time Temp Pulse Resp B/P (MAP) Pulse Ox O2 Delivery O2 Flow Rate FiO2 04/05/24 14:29 72 18 97/58 (71) 94 04/05/24 13:00 97.8 97.8 04/05/24 08:00 Room Air* 0 21 Intake/Output Intake and Output 04/05/24 07:00 Intake Total 780 ml Output Total 400 ml Balance 380 ml Intake Oral 780 ml Output Urine Total 400 ml # Voids 3 General Appearance: Alert, Oriented X3, Cooperative, No acute distress HEENT: Atraumatic Lungs: Clear to auscultation Cardiovascular: Regular rate Abdomen: Normal bowel sounds, Soft, No tenderness Extremities: Other (Some edema of the lower extremities) Psych/Mental Status: Mental status NL, Mood NL Medications Current Medications Medications Dose Ordered Sig/Renetta Route Start Time Stop Time Status Last Admin Dose Admin Aspirin 81 mg DAILY PO 04/04/24 10:00 04/05/24 10:08 81 MG Clopidogrel Bisulfate 75 mg DAILY PO 04/04/24 10:00 04/05/24 10:08 75 MG Levothyroxine Sodium 50 mcg QAM@0600 PO 04/04/24 06:00 04/05/24 06:16 50 MCG Diagnostic Test (Pha) 1 strip ACHS 04/04/24 07:00 04/04/24 22:16 1 STRIP Insulin Human Regular ACHS SC 04/04/24 07:00 04/04/24 22:25 2 UNITS Dextrose 50 ml UD PRN IV 04/04/24 02:15 Sodium Chloride 10 ml Q8HR IV 04/04/24 06:00 04/05/24 13:46 10 ML Ondansetron HCl 4 mg Q4HP PRN IV 04/04/24 02:15 04/04/24 16:39 4 MG Docusate Sodium 100 mg BIDPRN PRN PO 04/04/24 02:15 Acetaminophen 650 mg Q6HP PRN PO 04/04/24 02:15 04/04/24 05:21 650 MG Nitroglycerin 0.4 mg Q5MINP PRN SL 04/04/24 02:15 Morphine Sulfate 2 mg Q30M PRN IV 04/04/24 02:15 Hydromorphone HCl 0.5 mg Q4HPRN PRN IV 04/04/24 02:15 04/04/24 21:56 0.5 MG Hydralazine HCl 10 mg Q6HP PRN IV 04/04/24 05:15 04/04/24 05:20 10 MG Empaglifozin 10 mg DAILY PO 04/05/24 10:00 04/05/24 10:09 10 MG Atorvastatin Calcium 40 mg HS PO 04/04/24 22:00 04/04/24 21:53 40 MG Ranolazine 500 mg BID PO 04/04/24 22:00 04/05/24 10:08 500 MG Carvedilol 3.125 mg Q12HR PO 04/05/24 22:00 Sacubitril/ Valsartan 0.5 tab BID PO 04/05/24 22:00 Spironolactone 12.5 mg DAILY PO 04/06/24 10:00 Laboratory Results Laboratory Tests 04/05/24 07:00 Chemistry Test 04/05/24 07:00 Albumin 4.1 g/dL (3.2-4.8) Calcium Level 9.9 mg/dL (8.7-10.4) Total Protein 7.0 g/dL (5.7-8.2) LFT Test 04/05/24 07:00 Alanine Aminotransferase (ALT) 23 U/L (7-40) Alkaline Phosphatase 83 U/L (46-116) Aspartate Amino Transferase (AST) 21 U/L (13-40) Total Bilirubin 0.4 mg/dL (0.2-1.0) Urinalysis Test 04/04/24 08:00 Urine Color Yellow (Yellow) Urine Clarity Clear (Clear) Urine pH 7.5 (5.0-9.0) Urine Specific [place] 1.039 (1.001-1.035) Urine Protein 2+ (Negative) H Urine Ketones 2+ (Negative) H Urine Blood Negative /uL (Negative) Urine Nitrite Negative (Negative) Urine Bilirubin Negative (Negative) Urine Urobilinogen Normal mg/dL (Negative) Urine Leukocyte Esterase Negative /uL (Negative) Urine RBC 2 /hpf (0 - 4) Urine WBC 2 /hpf (0 - 5) Urine Squamous Epithelial Cells Few /hpf (<5) Urine Bacteria None seen /hpf (None Seen) Urine Glucose 4+ mg/dL (Normal) H Microbiology Microbiology Date/Time Source Procedure Growth Status 04/04/24 08:31 Nose MRSA Screen - Final Complete Assessment/Plan Assessment/Plan Non-STEMI Coronary artery disease with a history of multiple stents placement Systolic dysfunction with heart failure/EF 35 to 40% in February last month Diabetes Anxiety Depression Plan: Continue current plan of care. As per Cardiology. Plan discussed with: Patient Date of Service: Apr 05, 2024 Billing Provider: KLAUDIA FAULKNER MD Common Visit Codes: [id number] INP/OBS CARE(HIGH) KLAUDIA FAULKNER MD Apr 05, 2024 16:49
[2024-04-05] MEDS: CARVEDILOL 12.5 MG TAB PO SCH (21:52)
[2024-04-05] MEDS: SACUBITRIL-VALSARTAN 24mg/26mg TAB PO SCH (21:52)
[2024-04-06] VITALS (8 sets, daily range): BP systolic 94–108; BP diastolic 52–62; PULSE 71–80; RESP 15–20; TEMP 97.9–98.4; O2SAT 93–96
[2024-04-06 08:15] LABS: Alanine Aminotransferase 22 U/L (7-40); Albumin 4.1 g/dL (3.2-4.8); Alkaline Phosphatase 80 U/L (46-116); Anion Gap 8 (5-15); BUN/Creatinine Ratio 20.2 (10.0-20.0); Blood Urea Nitrogen 17 mg/dL (9-23); Calcium 9.7 mg/dL (8.7-10.4); Carbon Dioxide 25 mmol/L (20-31); Chloride 107 mmol/L (98-107); Potassium 4.3 mmol/L (3.5-5.1); Sodium 140 mmol/L (136-145)
[2024-04-06 08:16] LABS: Aspartate Aminotransferase 19 U/L (13-40); Bilirubin, Total 0.4 mg/dL (0.2-1.0); Total Protein 6.9 g/dL (5.7-8.2)
[2024-04-06 08:24] LABS: Glucose 157 mg/dL (74-106)
--- NOTE | 2024-04-06 09:08 | ECG ---
[facility] Test Date: 2024-04-04 Test Time: 06:19:55 Pat Name: GRANT ALY Department: Respiratoy Room: [facility]2T B Gender: F Colorectal Surgeon: LESLEE : 1965 Requested By: KAYLEE PARIS Order Number: [id number] Reading MD: Fallon Chen Measurements Intervals [place] Rate: 80 P: -1 RI: 135 QRS: 37 QRSD: 99 T: 74 QT: 419 QTc: 484 Interpretive Statements Sinus rhythm Low voltage, precordial leads RSR' in V1 or V2, right VCD or RVH Electronically Signed On 04-07-2024 9:08:47 PST by Fallon Chen Please click the below link to view image of tracing.
--- NOTE | 2024-04-06 09:08 | ECG ---
[facility] Test Date: 2024-04-04 Test Time: 06:19:00 Pat Name: GRANT ALY Department: Respiratoy Room: [facility]2T B Gender: F Toe Puncher: LESLEE : 1965 Requested By: KAYLEE PARIS Order Number: [id number] Reading MD: Fallon Chen Measurements Intervals [place] Rate: 78 P: -1 TN: 128 QRS: 45 QRSD: 102 T: 76 QT: 429 QTc: 489 Interpretive Statements Sinus rhythm Low voltage, precordial leads RSR' in V1 or V2, right VCD or RVH Borderline prolonged QT interval Electronically Signed On 04-07-2024 9:08:46 PST by Fallon Chen Please click the below link to view image of tracing.
[2024-04-06] MEDS: SPIRONOLACTONE 25 MG TAB PO SCH (10:00)
--- NOTE | 2024-04-06 16:42 | DVHPN2 ---
Subjective Some dizziness with walking. 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 H/P or p: No Changes General: Per HPI Objective Vitals Vital Signs Date Time Temp Pulse Resp B/P (MAP) Pulse Ox O2 Delivery O2 Flow Rate FiO2 04/06/24 13:00 98.0 71 15 103/55 (71) 93 98.0 04/06/24 08:00 Room Air* 0 21 Intake/Output Intake and Output 04/06/24 07:00 Intake Total 2535 ml Balance 2535 ml Intake Oral 2535 ml # Voids 3 General Appearance: Alert, Oriented X3, Cooperative, No acute distress HEENT: Atraumatic Lungs: Clear to auscultation Cardiovascular: Regular rate Abdomen: Normal bowel sounds, Soft, No tenderness Extremities: Other (Some edema of the lower extremities) Psych/Mental Status: Mental status NL, Mood NL Medications Current Medications Medications Dose Ordered Sig/Renetta Route Start Time Stop Time Status Last Admin Dose Admin Aspirin 81 mg DAILY PO 04/04/24 10:00 04/06/24 10:28 81 MG Clopidogrel Bisulfate 75 mg DAILY PO 04/04/24 10:00 04/06/24 10:28 75 MG Levothyroxine Sodium 50 mcg QAM@0600 PO 04/04/24 06:00 04/06/24 06:05 50 MCG Diagnostic Test (Pha) 1 strip ACHS 04/04/24 07:00 04/06/24 14:33 1 STRIP Insulin Human Regular ACHS SC 04/04/24 07:00 04/04/24 22:25 2 UNITS Dextrose 50 ml UD PRN IV 04/04/24 02:15 Sodium Chloride 10 ml Q8HR IV 04/04/24 06:00 04/06/24 14:34 10 ML Ondansetron HCl 4 mg Q4HP PRN IV 04/04/24 02:15 04/04/24 16:39 4 MG Docusate Sodium 100 mg BIDPRN PRN PO 04/04/24 02:15 Acetaminophen 650 mg Q6HP PRN PO 04/04/24 02:15 04/04/24 05:21 650 MG Nitroglycerin 0.4 mg Q5MINP PRN SL 04/04/24 02:15 Morphine Sulfate 2 mg Q30M PRN IV 04/04/24 02:15 Hydromorphone HCl 0.5 mg Q4HPRN PRN IV 04/04/24 02:15 04/04/24 21:56 0.5 MG Hydralazine HCl 10 mg Q6HP PRN IV 04/04/24 05:15 04/04/24 05:20 10 MG Empaglifozin 10 mg DAILY PO 04/05/24 10:00 04/06/24 10:28 10 MG Atorvastatin Calcium 40 mg HS PO 04/04/24 22:00 04/05/24 21:47 40 MG Ranolazine 500 mg BID PO 04/04/24 22:00 04/06/24 10:29 500 MG Sacubitril/ Valsartan 0.5 tab BID PO 04/05/24 22:00 04/05/24 21:52 0.5 TAB Spironolactone 12.5 mg DAILY PO 04/06/24 10:00 Metoprolol Tartrate 12.5 mg BID PO 04/06/24 22:00 Laboratory Results Laboratory Tests 04/05/24 07:00 04/06/24 07:22 Chemistry Test 04/06/24 07:22 Albumin 4.1 g/dL (3.2-4.8) Calcium Level 9.7 mg/dL (8.7-10.4) Total Protein 6.9 g/dL (5.7-8.2) LFT Test 04/06/24 07:22 Alanine Aminotransferase (ALT) 22 U/L (7-40) Alkaline Phosphatase 80 U/L (46-116) Aspartate Amino Transferase (AST) 19 U/L (13-40) Total Bilirubin 0.4 mg/dL (0.2-1.0) Urinalysis Test 04/04/24 08:00 Urine Color Yellow (Yellow) Urine Clarity Clear (Clear) Urine pH 7.5 (5.0-9.0) Urine Specific [place] 1.039 (1.001-1.035) Urine Protein 2+ (Negative) H Urine Ketones 2+ (Negative) H Urine Blood Negative /uL (Negative) Urine Nitrite Negative (Negative) Urine Bilirubin Negative (Negative) Urine Urobilinogen Normal mg/dL (Negative) Urine Leukocyte Esterase Negative /uL (Negative) Urine RBC 2 /hpf (0 - 4) Urine WBC 2 /hpf (0 - 5) Urine Squamous Epithelial Cells Few /hpf (<5) Urine Bacteria None seen /hpf (None Seen) Urine Glucose 4+ mg/dL (Normal) H Microbiology Microbiology Date/Time Source Procedure Growth Status 04/04/24 08:31 Nose MRSA Screen - Final Complete Assessment/Plan Assessment/Plan Non-STEMI Coronary artery disease with a history of multiple stents placement Systolic dysfunction with heart failure/EF 35 to 40% in February last month Diabetes Anxiety Depression Plan: Repeat troponin. Coronary ultrasound. Physical therapy. Medical treatment. Further plan per orders Plan discussed with: Patient Date of Service: Apr 06, 2024 Billing Provider: KLAUDIA FAULKNER MD Common Visit Codes: [id number] INP/OBS CARE(HIGH) KLAUDIA FAULKNER MD Apr 06, 2024 16:42
[2024-04-06] MEDS: METOPROLOL TARTRATE 25 MG TAB PO SCH (21:17)
[2024-04-07 01:00] VITALS: BP 115/71; PULSE 70; RESP 18; TEMP 97.8; O2SAT 99
--- NOTE | 2024-04-07 04:59 | BSKYNEURO ---
[facility] Note # Demographics Consult Type: General Neurology Patient Location: Inpatient First Name: Gem Last Name: Tracie Stauffer Date of : 1965 Age: 58 Gender: Female Facility: [facility] Time of Initial Page (): 04/07/2024, 00:44 Time of Return Call (): 04/07/2024, 00:45 # HPI Chief Complaint: - dizziness History: 58F with afib, CHF, CAD/SC, DM, HTN presented with high blood pressure, dizziness x4 days. Remains dizzy. BP 115/71 now down from 196/96. Takes ASA intermittently at home, prescribed aspirin and clopidogrel. Had coronary angiogram on 02/09 which showed widely patent stents to the RCA, LAD, and left circumflex; presented to another hospital 03/18 and had an angiogram there, but cannot recall the results. Has chronic left-sided numbness. Still having dizziness as well. # Scores Time of exam and NIHSS (): 04/07/2024, 04:42 Level of Consciousness 1a: [0] = Alert; keenly responsive LOC Questions 1b: [1] = Answers one correctly LOC Commands 1c: [0] = Performs both tasks correctly Best Gaze 2: [0] = Normal Visual 3: [0] = No visual loss Facial Palsy 4: [1] = Minor paralysis Motor Arm Left 5a: [0] = No drift Motor Arm Right 5b: [0] = No drift Motor Leg Left 6a: [0] = No drift Motor Leg Right 6b: [0] = No drift Limb Ataxia 7: [0] = Absent Sensory 8: [1] = Hikz-id-yjhoiauk sensory loss Best Language 9: [0] = No aphasia Dysarthria 10: [0] = Normal Extinction and Inattention 11: [0] = No abnormality NIHSS Total: 3 # Assessment Impression: r/o stroke vs hypertensive emergency # Plan Target Blood Pressure: - SBP < 220 - DBP < 105 Labs: - hemoglobin A1c - lipid panel Imaging: (urgency: STAT): - CT Head without contrast Imaging: (urgency: routine): - MRI Brain without contrast - MR Angiogram Head without contrast - MR Angiogram Neck with contrast Diagnostic Test: - echo with bubble study Therapy/Evaluation: - PT/OT evaluation - speech/swallow consultation Medication: Atorvastatin 80, then tailor to LDL < 70 goal If no acute hemorrhage, continue DAPT DVT Prophylaxis: - SCD - chemical DVT prophylaxis Other: - If patient has any neurological deterioration please call me back immediately - permissive hypertension - telemetry monitoring - I have discussed my recommendations with the referring provider Disposition: continue admission # Logistics Attestation of consult completion: The patient is located at: [facility]. Facility staff participated in the visit. I performed this telemedicine visit from my offsite office utilizing interactive 2 way audio and visual telecommunication technology. Consent: Verbal consent was obtained from the patient and/or family for this encounter. Total time spent in telemedicine encounter: I spent 10 minutes reviewing clinical data and/or imaging, obtaining history, examining the patient, communicating with the onsite care team, and in preparation of this report. Electronically signed at 04/07/2024 04:59 ([place] Time) by Gary Jara MD Yes GARY JARA MD Apr 07, 2024 04:59
[2024-04-07 05:00] VITALS: BP 116/68; PULSE 66; RESP 17; TEMP 97.6; O2SAT 100
[2024-04-07 08:00] VITALS: PULSE 73; PULSE 83; RESP 17; O2SAT 100
[2024-04-07] MEDS ORDERED: APIX5TAB PO (08:26)
[2024-04-07] MEDS ORDERED: SACU1TAB PO (08:27)
[2024-04-07] MEDS ORDERED: SPIR25TA PO (08:27)
[2024-04-07 09:00] VITALS: BP 120/70; PULSE 73; RESP 17; TEMP 97.7; O2SAT 100
[2024-04-07 09:15] VITALS: BP 120/70; PULSE 73; RESP 17; TEMP 97.7; O2SAT 100
[2024-04-07] MEDS: APIXABAN 5 MG TAB PO SCH (09:29)
--- NOTE | 2024-04-07 09:29 | DVHDS2 ---
Discharge Summary Date of Admission Apr 04, 2024 at 02:23 Date of Discharge: Apr 07, 2024 Admitting Diagnosis NSTEMI Labs/Diagnostic Data: Laboratory Results Test 04/06/24 21:18 04/06/24 07:22 04/05/24 07:00 04/04/24 12:45 POC Glucose 149 mg/dl (70-106) Sodium Level 140 mmol/L (136-145) Potassium Level 4.3 mmol/L (3.5-5.1) Chloride Level 107 mmol/L (98-107) Carbon Dioxide Level 25 mmol/L (20-31) Anion Gap 8 (5-15) Blood Urea Nitrogen 17 mg/dL (9-23) Creatinine 0.84 mg/dL (0.550-1.02) Glomerular Filtration Rate Calc 81 mL/min (>90) BUN/Creatinine Ratio 20.2 (10.0-20.0) Serum Glucose 157 mg/dL (74-106) Calcium Level 9.7 mg/dL (8.7-10.4) Total Bilirubin 0.4 mg/dL (0.2-1.0) Aspartate Amino Transferase (AST) 19 U/L (13-40) Alanine Aminotransferase (ALT) 22 U/L (7-40) Alkaline Phosphatase 80 U/L (46-116) Troponin I High Sensitivity 143 ng/L (</=34) Total Protein 6.9 g/dL (5.7-8.2) Albumin 4.1 g/dL (3.2-4.8) White Blood Count 4.7 10^3/uL (4.4-10.8) Red Blood Count 4.41 10^6/uL (4.0-5.20) Hemoglobin 13.9 g/dL (12.2-16.2) Hematocrit 41.4 % (36.0-46.0) Mean Corpuscular Volume 94.1 fL (80.0-100.0) Mean Corpuscular Hemoglobin 31.5 pg (28.0-32.0) Mean Corpuscular Hemoglobin Concent 33.4 g/dL (32.0-36.0) Red Cell Distribution Width 14.9 % (11.8-14.3) Platelet Count 260 10^3/uL (140-450) Mean Platelet Volume 8.5 fL (6.9-10.8) Neutrophils (%) (Auto) 47.6 % (37.0-80.0) Lymphocytes (%) (Auto) 42.8 % (10.0-50.0) Monocytes (%) (Auto) 5.5 % (0.0-12.0) Eosinophils (%) (Auto) 3.6 % (0.0-7.0) Basophils (%) (Auto) 0.5 % (0.0-2.0) Neutrophils # (Auto) 2.3 10 ^3/uL (1.6-8.6) Lymphocytes # (Auto) 2.0 10 ^3/uL (0.4-5.4) Monocytes # (Auto) 0.3 10 ^3/uL (0-1.3) Eosinophils # (Auto) 0.2 10 ^3/uL (0-0.8) Basophils # (Auto) 0 10 ^3/uL (0-0.2) Nucleated Red Blood Cells 0.1 % Hemoglobin A1c 7.7 % A1C (<5.7) Test 04/04/24 08:00 04/04/24 03:37 04/03/24 23:50 Urine Color Yellow (Yellow) Urine Clarity Clear (Clear) Urine pH 7.5 (5.0-9.0) Urine Specific [place] 1.039 (1.001-1.035) Urine Protein 2+ (Negative) Urine Ketones 2+ (Negative) Urine Blood Negative /uL (Negative) Urine Nitrite Negative (Negative) Urine Bilirubin Negative (Negative) Urine Urobilinogen Normal mg/dL (Negative) Urine Leukocyte Esterase Negative /uL (Negative) Urine RBC 2 /hpf (0 - 4) Urine WBC 2 /hpf (0 - 5) Urine Squamous Epithelial Cells Few /hpf (<5) Urine Bacteria None seen /hpf (None Seen) Urine Glucose 4+ mg/dL (Normal) Erythrocyte Sedimentation Rate 23 mm/hr (0-20) C-Reactive Protein High Sensitivity 0.12 mg/dL (<1.0) B-Type Natriuretic Peptide 13.81 pg/mL (0-100) Prothrombin Time 10.9 sec (9.3-11.8) Prothrombin Time INR 1.03 (0.9-1.15) Activated Partial Thromboplast Time 25.1 SEC (24.5-34.5) Magnesium Level 2.1 mg/dL (1.6-2.6) Lipase 77 U/L (12-53) Other Laboratory Tests 04/06/24 07:22 04/05/24 07:00 Brief Hx & Hospital Course: HPI Comments 58-year-old female who came to ER for chest pains. Patient has an extensive cardiac history, doing hypertension, diabetes, coronary artery disease, , CHF, AFib, status post cardiac stents. States for the past 3-4 days she has been having episodes of nausea and vomiting, unable to keep anything in. Earlier today, patient started experiencing substernal chest pains, midline, pressure, constant, nonradiating, associated with dizziness and shortness of breath. Upon arrival patient's blood pressure was 191/92 mm Hg. Course of hospitalization: Patient was assessed by Cardiology, for which her medical history was retrieved, with the patient having recent angiogram as well as echocardiogram. Patient was diagnosed with a NSTEMI type 2 secondary to hypertensive crisis. The patient did report having some dizziness, for which neurology consultation was obtained. It was noted that the patient's blood pressure has been significantly improved, which was probably the etiology for why she has a new onset of dizziness. She states that her dizziness has resolved. She was agreeable to be discharged home and follow up with her PCP as well as Cardiology in 1-2 weeks. Reviewing her medication reconciliation, new goal-directed medical therapy will be added to assist with her heart failure as well as her hypertension including Entresto, and spironolactone. Physical examination General: Alert and Oriented x3. No acute distress. Well-nourished. Eyes: EOMI. Anicteric. HENT: Moist mucous membranes. Lungs: Clear to auscultation bilaterally. No accessory muscle use. Cardiovascular: Regular rate and rhythm. No murmur. No JVD. Abdomen: Soft, non-tender and non-distended. No palpable masses. Extremities: No edema. Non-tender. Skin: No rashes or lesions. Warm. Neurologic: No focal neurological deficits. CN II-XII grossly intact, but not individually tested. Psychiatric: Cooperative. Appropriate mood and affect. Total time spent with patient discussing and formulating plan of care: 35 minutes. This medical document was created using an electronic medical record system with [employer] dictation system. Although this document has been carefully reviewed, there may still be some phonetic and typographical errors. These areas are purely typographical due to imperfections of the software programs, and do not reflect any compromise in the patient's medical care. Consults/Reason for consult Cardiology: History of coronary artery disease with previous stent placement. Acute coronary syndrome? Condition at Discharge: Fair Final Diagnosis/Problems List NSTEMI type II secondary to Hypertensive urgency Secondary Diagnosis: -NSTEMI, questionably type 1 -? Prinzmetal angina secondary to small-vessel disease -diabetes mellitus -anxiety disorder -depression -dyslipidemia -history of coronary artery disease with previous stent placement -acute on chronic systolic heart failure Discharge Disposition: Home Discharge Instruct/Medications Diet: Cardiac 2g Na,low cholest Activity: No Restrictions, As Tolerated Follow Up/Referral: [employer]ator in 1-2 weeks PCP in 1-2 weeks DC clinic in 1 week Medications: Refer Medication Reconcilation 36 Discharge Statement: "Patient was advised to return to the ER or call 911 if any headaches, dizziness, shortness of breath, chest pain, abdominal pain, bleeding, fevers, or worsening of medical condition. Patient was counseled about treatment plan, medications, possible side effects, patientverbalized understanding. All questions were answered to the best of my ability. This discharge took greater then 30 minutes in planning, reviewing documentation, counseling the patient, and discussing with other team members." ASSESSMENT ASSESSMENT Assessment NSTEMI type II secondary to Hypertensive urgency Date of Service: Apr 07, 2024 Billing Provider: MELANI CRISTINA NP Common Visit Codes: [id number] DISCH DAY >30min MELANI CRISTINA NP Apr 07, 2024 09:29
[2024-04-07 10:07] LABS: Hepatitis B Surface Antigen Negative (Negative)
[2024-04-07 10:31] LABS: Hepatitis C Antibody Negative (Negative)
== END 2024-04-07 11:10 | disposition home or self-care (01) | DRG 199 ==
LOC: ER 23:42 → TELE 04-04 02:23 → TELE-WESTW 04-04 03:45
PROVIDERS: ADMIT Nurse Practitioner Family; ATTEND Nurse Practitioner Acute Care
DX: I16.0 Hypertensive urgency (principal); I50.23 Acute on chronic systolic (congestive) heart failure; I21.A1 Myocardial infarction type 2; I11.0 Hypertensive heart disease with heart failure; I48.0 Paroxysmal atrial fibrillation; F32.A Depression, unspecified; E78.5 Hyperlipidemia, unspecified; E66.9 Obesity, unspecified; E11.9 Type 2 diabetes mellitus without complications; F41.9 Anxiety disorder, unspecified; E03.9 Hypothyroidism, unspecified; Z88.5 Allergy status to narcotic agent; Z95.5 Presence of coronary angioplasty implant and graft; Z90.710 Acquired absence of both cervix and uterus; Z82.3 Family history of stroke; Z80.49 Family history of malignant neoplasm of other genital organs; Z68.28 Body mass index [BMI] 28.0-28.9, adult
CPT/HCPCS: 36415; 80053; 81001; 82962; 83036; 83880; 84484; 85025; 85652; 86141; 86803; 87081; 87340; 93005; 99291; G0378; J1815; J2405